=== PATIENT | female | born 1990 | race Caucasian/White ===

== ENCOUNTER 2023-09-21 21:01 | Emergency (ER) | payer BC, SELFPAY ==
[2023-09-21 21:02] VITALS: BP 117/75; PULSE 90; RESP 18; TEMP 36; O2SAT 97; BMI 22.4
--- NOTE | 2023-09-21 21:17 | EKG12_ITS ---
Test Reason : SYNCOPE Blood Pressure : / mmHG Vent. Rate : 085 BPM Atrial Rate : 085 BPM P-R Int : 134 ms QRS Dur : 148 ms QT Int : 390 ms P-R-T Axes : 073 099 019 degrees QTc Int : 464 ms Normal sinus rhythm with sinus arrhythmia Right bundle branch block Abnormal ECG Confirmed by AMANDA ARANGO, LEVON ([id number]), movie editor BEATRICE FERRER ([id number]) on 09/23/2023 9:43:54 AM Referred By: Confirmed By:LEVON PATEL MD
--- NOTE | 2023-09-21 21:17 | EX.ED.DYSGE1 ---
HPI History of Present Illness Chief Complaint: Shortness of Breath Informant: patient and parent Narrative Narrative: Brought by EMS from work for syncopal episode. Productive cough for last couple days no fevers no muscle aches. Had a headache yesterday. Reports some shortness of breath with cough. Prior to passing out she had significant coughing event an hour at work. She was boxing up food with she passed out. No chest pains. Denies recent vomiting or diarrhea. Denies urinary symptoms. Denies any past medical history. Last menstrual period 3 weeks ago. Prior similar symptoms: No PFSH PFSH Home Medications potassium chloride 20 mEq tablet,extended release(part/cryst) 20 meq PO DAILY #7 tabs 09/21/23 [Rx Last Taken Unknown] Allergy/AdvReac Type Severity Reaction Status Date / Time No Known Allergies Allergy Verified 09/21/23 21:02 ROS ROS ED Constitutional Constitutional ED: Denies chills, fever(s) or sweats Eyes Eyes: Denies change in vision ENT ENT ED: Denies dysphagia or sore throat Cardiovascular Cardiovascular: Denies chest pain, leg edema, palpitations or racing heartbeat Respiratory/Chest Respiratory/Chest: Reports cough, dyspnea and other Details: Syncope ; Denies dyspnea on exertion Gastrointestinal Gastrointestinal: Denies abdominal pain, diarrhea, nausea or vomiting Genitourinary Genitourinary ED: Denies dysuria, hematuria or urinary frequency Musculoskeletal Musculoskeletal: Denies back pain, extremity pain or neck pain Integumentary Denies rash or wounds Neurologic Neurologic: Reports headache(s); Denies paresthesias or weakness EXAM Physical Exam Const Vital Signs: 09/21/23 21:02 09/21/23 21:01 09/21/23 21:36 Temperature 96.8 F L Temperature Source Temporal Pulse Rate 90 Pulse Rate [Lying] Pulse Rate [Sitting (for 1 minute prior to obtaining)] Pulse Rate [Standing (for 1 minute prior to obtaining)] Respiratory Rate 18 Respiratory Effort Normal Normal Respiratory Depth Normal Respiratory Pattern Normal Normal Blood Pressure 117/75 Blood Pressure [Lying] Blood Pressure [Sitting (for 1 minute prior to obtaining)] Blood Pressure [Standing (for 1 minute prior to obtaining)] Blood Pressure Mean 89 Blood Pressure Mean [Lying] Blood Pressure Mean [Sitting (for 1 minute prior to obtaining)] Blood Pressure Mean [Standing (for 1 minute prior to obtaining)] Pulse Ox 97 Oxygen Delivery Method Room Air Room Air 09/21/23 22:01 09/21/23 22:20 09/21/23 22:31 Temperature Temperature Source Pulse Rate 79 78 66 Pulse Rate [Lying] Pulse Rate [Sitting (for 1 minute prior to obtaining)] Pulse Rate [Standing (for 1 minute prior to obtaining)] Respiratory Rate 16 16 12 Respiratory Effort Respiratory Depth Respiratory Pattern Blood Pressure 88/62 L 108/76 111/80 Blood Pressure [Lying] Blood Pressure [Sitting (for 1 minute prior to obtaining)] Blood Pressure [Standing (for 1 minute prior to obtaining)] Blood Pressure Mean 70 86 90 Blood Pressure Mean [Lying] Blood Pressure Mean [Sitting (for 1 minute prior to obtaining)] Blood Pressure Mean [Standing (for 1 minute prior to obtaining)] Pulse Ox 99 98 99 Oxygen Delivery Method Room Air Room Air Room Air 09/21/23 22:57 09/21/23 22:40 Temperature 98.2 F Temperature Source Pulse Rate 78 Pulse Rate [Lying] 69 Pulse Rate [Sitting (for 1 minute prior to obtaining)] 73 Pulse Rate [Standing (for 1 minute prior to obtaining)] 88 Respiratory Rate 16 Respiratory Effort Respiratory Depth Respiratory Pattern Blood Pressure 111/79 Blood Pressure [Lying] 103/70 Blood Pressure [Sitting (for 1 minute prior to obtaining)] 128/66 H Blood Pressure [Standing (for 1 minute prior to obtaining)] 114/76 Blood Pressure Mean 89 Blood Pressure Mean [Lying] 81 Blood Pressure Mean [Sitting (for 1 minute prior to obtaining)] 86 Blood Pressure Mean [Standing (for 1 minute prior to obtaining)] 88 Pulse Ox 98 Oxygen Delivery Method Positive well nourished and well developed General Appearance ED: well developed and NAD HEENT Reports moist mucous membranes normocephalic and atraumatic Eyes PERRL, EOMs intact bilaterally and conjunctivae normal General Eye ED: Yes normal appearance of both eyes Neck no lymphadenopathy and supple Neck Narrative: No meningismus General: Negative for tenderness Chest Wall Chest: Negative for tenderness Resp normal respiratory effort and normal air movement Effort and Inspection: symmetric chest movement; Negative for respiratory distress Cardio regular rate, regular rhythm and no murmurs Peripheral Pulses: pulses 2+ throughout GI normal to inspection, nondistended, normoactive bowel sounds and non-tender Palpation: Negative for guarding or rebound tenderness present Back/Spine no CVA tenderness and no thoracic nor lumbar tenderness Extremity normal to inspection General Extremety ED: Negative for edema or tenderness General Extremity: Negative for edema Neuro oriented x3, CN's II-XII intact bilaterally and no sensory deficits noted Sensorium / Orientation: awake and alert Skin no rashes or lesions noted and no wounds MDM MDM MDM Narrative Medical decision making narrative: Interventions / MDM: Differential diagnosis: Syncope, viral syndrome Diagnosis considered but do not suspect: Pulmonary embolism however PE RC criteria negative. Pneumonia however x-ray negative. My EKG interpretation: Sinus rate of 85, no ST changes. T wave inversions anterior leads, right bundle branch block. QTc 464. No old for comparison. Imaging independently reviewed and interpreted by myself: 2 view chest x-ray: No acute process also read by radiology External documents reviewed: N/A Test considered but not ordered:N/A ED course: EKG right bundle branch with T wave inversions anterior leads. No old for comparison. She has no chest pains. No history known to her of this. Will check basic labs, two-view chest x-ray other cough, COVID influenza sent for further evaluation. Vitals are stable. There is no focal deficits. Labs findings of hypokalemia. 2.8. Oral replacement was started. COVID and flu were negative. Chest x-ray negative. Reevaluation stable. Ambulated out better slight dizziness. Discussed offer additional fluids if she is concerned. She states she will go home and drink fluids. 1 week prescription for daily potassium replacement. Discussed her right bundle branch block, outpatient follow further testing as needed. Return precautions. All questions were answered. Re-evaluation: stable Disposition discussed with patient/family/significant other: Patient and family Case discussed with consulting clinician: N/A This note was generated with [employer] dictation software. It may contain incorrect words, spelling, and punctuation that were not noted in checking the note before signing. Lab Data Attestation: I reviewed the patient's lab results. Labs: Laboratory Results - last 24 hr 09/21/23 21:25 WBC 6.0 RBC 4.32 Hgb 11.2 L Hct 34.6 L MCV 80.1 L MCH 25.9 L MCHC 32.4 RDW Std Deviation 46.1 H RDW Coeff of Shay 15.9 H Plt Count 215 MPV 10.5 Immature Gran % (Auto) 0.200 Neut % (Auto) 62.3 Lymph % (Auto) 30.2 [place] % (Auto) 5.5 Eos % (Auto) 1.5 Baso % (Auto) 0.3 Absolute Neuts (auto) 3.8 Absolute Lymphs (auto) 1.82 Nucleated RBC % 0 Sodium 139 Potassium 2.8 L Chloride 106 Carbon Dioxide 25.0 Anion Gap 8 BUN 12 Creatinine 0.72 Estim Creat Clear Calc 100.00 Est GFR (MDRD) Af Amer 121 Est GFR (MDRD) Non-Af 100 BUN/Creatinine Ratio 16.8 Glucose 95 Calcium 8.7 Radiography Diagnostic Testing: Clinical Impression(s) from Imaging Studies Chest X-Ray 09/21/23 21:22 IMPRESSION: No radiographic evidence of acute cardiopulmonary disease. Electronically Signed: Jovany Arroyo MD at 21:55 EDT , Discharge Plan Triage Chief Complaint: Shortness of Breath Other Complaint: Syncope ED Provider: Eulogio Molina Dx/Rx/DC Orders Clinical Impression: Viral URI with cough, Right bundle branch block, Syncope, Hypokalemia Instructions: ED Hypokalemia, ED Fainting, Vagal Reaction, ED URI, Viral, No Abx (Adult) Prescriptions: New potassium chloride 20 mEq tablet,ER particles/crystals 20 meq PO DAILY Qty: 7 0RF Primary Care Provider: Care Physician,No Primary Referrals: Yonatan Damon MD [Med Staff - Membership Sales Manager] - Bjorn Christie MD [Med Staff - Membership Sales Manager] - 1 Week Activity Restrictions/Additional Instructions: Chest x-ray negative EKG with right bundle branch block. Labs potassium 2.8. Continue potassium replacement. Your COVID and flu were negative. Follow-up as an outpatient. If symptoms recur, return to the ED for reevaluation. Disposition Disposition: Home, Self Care Discharge Date/Time: 09/21/23 22:58
--- NOTE | 2023-09-21 21:22 | RAD_ITS ---
INDICATION: COUGH EXAMINATION/TECHNIQUE: X-RAY - XR Chest 2 Views COMPARISON: None. FINDINGS: LINES/DEVICES: None. LUNGS: No consolidation, edema or effusion. No pneumothorax. MEDIASTINUM AND CARDIOVASCULAR STRUCTURES: Cardiac silhouette not enlarged. BONES AND SOFT TISSUES: Unremarkable. RAD/Chest PA and Lateral IMPRESSION: No radiographic evidence of acute cardiopulmonary disease. Electronically Signed: Jovany Arroyo MD at 21:55 EDT ,
[2023-09-21 21:29] LABS: Absolute Lymphocyte Count 1.82 X10^3/uL (0.83-4.51); Absolute Neutrophil Count 3.8 X10^3/uL (2.0-7.7); Basophil# 0.02 X10^3/uL; Basophil% 0.3 % (0-1); Eosinophil# 0.09 X10^3/uL; Eosinophils% 1.5 % (0-5); Hematocrit 34.6 % (37-47); Hemoglobin 11.2 g/dL (12.0-15.0); Lymphocyte # 1.82 X10^3/ul (0.83-4.51); Lymphocyte % 30.2 % (19-41); Mean Corp Hgb Conc 32.4 g/dL (32-36); Mean Corpuscular Hgb 25.9 pg (27.0-32.0); Mean Corpuscular Volume 80.1 fL (81-99); Mean Platelet Vol. 10.5 fl (6.2-12.0); Monocyte# 0.33 X10^3/uL; Monocyte% 5.5 % (0-10); NRBC Flagged by Analyzer 0 % (0-5); Neutrophil # 3.76 X10^3/uL (2.7-7.7); Neutrophil % 62.3 % (47-70); Platelet Count 215 K/mm3 (150-450); RBC Distribution Width CV 15.9 % (11.6-14.6); RBC Distribution Width SD 46.1 fl (35.1-43.9); Red Blood Count 4.32 M/mm3 (4.2-5.4)
[2023-09-21] MEDS: 0.9% Normal Saline (500mL Bag) 500 ML 999 ML IV (21:33)
[2023-09-21] MEDS: Ondansetron 4 MG/2 ML Vial IV (21:33)
[2023-09-21 21:44] LABS: Anion Gap 8 (5-15); BUN 12 mg/dL (7-18); BUN/Creat Ratio 16.8 RATIO (10-20); Calcium,Total 8.7 mg/dL (8.5-10.1); Chloride 106 mmol/L (98-107); Creatinine, Serum 0.72 mg/dL (0.55-1.02); EST Glomerular Filtration Rate 100 mL/min (>60); Est Glom Filt Rate - Afr Amer 121 mL/min (>60); Glucose 95 mg/dL (74-106); Potassium 2.8 mmol/L (3.5-5.1); Sodium Level 139 mmol/L (136-145)
[2023-09-21 22:01] VITALS: BP 88/62; PULSE 79; RESP 16; O2SAT 99
[2023-09-21] MEDS: Potassium Chloride Oral Tablet 20 MEQ 40 MEQ PO (22:18)
[2023-09-21 22:20] VITALS: BP 108/76; PULSE 78; RESP 16; O2SAT 98
--- NOTE | 2023-09-21 22:24 | ED.RN ---
ambulated w/ standby, patient reported, a little dizzy and some spots in my vision.
[2023-09-21 22:31] VITALS: BP 111/80; PULSE 66; RESP 12; O2SAT 99
[2023-09-21 22:40] VITALS: BP 103/70; BP 114/76; BP 128/66; PULSE 69; PULSE 73; PULSE 88
[2023-09-21 22:57] VITALS: BP 111/79; PULSE 78; RESP 16; TEMP 36.8; O2SAT 98
== END 2023-09-21 22:58 | disposition home or self-care (01) ==
PROVIDERS: Emergency Provider Emergency Medicine; Visit Provider Emergency Medicine
DX: J06.9 Acute upper respiratory infection, unspecified (principal); E87.6 Hypokalemia; R42 Dizziness and giddiness; I45.10 Unspecified right bundle-branch block; R55 Syncope and collapse; R51.9 Headache, unspecified
CPT/HCPCS: 71046; 80048; 85025; 87631; 93005; 96361; 96374; 99285; J7030; A4216; J2405